=== PATIENT | female | born 1980 | race American Indian/Alaskan Native ===

== ENCOUNTER 2017-04-11 01:14 | Inpatient (IN) | payer MEDICAID ==
[~2017-04-11 01:14] MED LIST: APRESOLINE IV ONE
[2017-04-11] MEDS ORDERED: TUCKS PAD TP PRN (01:22)
[2017-04-11] MEDS ORDERED: XYLOCAINE 2% INFILTRATI ONE (01:22)
[2017-04-11] MEDS ORDERED: BRETHINE IVP PRN (01:22)
[2017-04-11] MEDS ORDERED: DULCOLAX PR PRN (01:22)
[2017-04-11] MEDS ORDERED: PHENERGAN PR PRN (01:22)
[2017-04-11] MEDS ORDERED: SUBLIMAZE IV PRN (01:22)
[2017-04-11] MEDS ORDERED: BENADRYL PO PRN (01:22)
[2017-04-11] MEDS ORDERED: LANSINOH TP PRN (01:22)
[2017-04-11] MEDS ORDERED: PHENERGAN PO PRN ×2 (01:22)
[2017-04-11] MEDS ORDERED: ZOFRAN IV PRN ×2 (01:22)
[2017-04-11] MEDS ORDERED: MILK OF MAGNESIA PO PRN (01:22)
[2017-04-11] MEDS ORDERED: STADOL IV PRN (01:22)
[2017-04-11] MEDS ORDERED: ePHEDrine SULFATE IV PRN (01:22)
[2017-04-11] MEDS ORDERED: MINERAL OIL PO PRN (01:22)
[2017-04-11] MEDS ORDERED: NARCAN 0.4 MG/1 ML IV PRN (01:22)
[2017-04-11] MEDS ORDERED: BRETHINE SUB-Q PRN (01:22)
[2017-04-11] MEDS ORDERED: TYLENOL PO PRN (01:22)
--- NOTE | 2017-04-11 01:33 | History and Physical Report ---
History of Present Illness Date of examination: 04/11/17 Date of admission: 04/11/17 01:14 Chief complaint: Delivered in EMS on way to hospital History of present illness: This is a 36 yo unknown LMP nor EDC as patient has not received any care. She stated that at 400p leaking water and then contractions started earlier in the night and called EMS and delivered via Ambulance. She denies any barreto, bv nor scotomat. She denies any medical problems and no surgeries. She has not received any care this . Past History Past Medical History: no pertinent history Past Surgical History: no surgical history Family/Genetic History: none, diabetes (mom), hypertension (grandmother) Social history: single, smoking. denies: alcohol abuse, prescription drug abuse - Obstetrical History : 9 Para: 8 Hx # Term Pregnancies: 8 Number of Pregnancies: 0 Spontaneous Abortions: 0 Induced : 0 Number of Living Children: 8 Medications and Allergies Allergies Allergy/AdvReac Type Severity Reaction Status Date / Time No Known Allergies Allergy Verified 07/23/15 08:51 Home Medications Medication Instructions Recorded Confirmed Last Taken Type HYDROcodone/APAP 5-325 [[place] 1 each PO Q6HR PRN #20 tablet 07/23/15 Unknown Rx 5/325] Labetalol [Normodyne TAB] 200 mg PO BID #60 tablet 07/23/15 Unknown Rx Ondansetron [Zofran Odt] 4 mg PO Q6H PRN #7 tab.rapdis 07/23/15 Unknown Rx - Physical Exam Breasts: Positive: normal Cardiovascular: Regular rate, Normal S1 Lungs: Positive: Clear to auscultation Abdomen: Positive: normal appearance, soft, normal bowel sounds. Negative: distention, tenderness Genitourinary (Female): Positive: normal external genitalia, normal perenium Vulva: both: normal Uterus: Positive: normal size, normal contour Extremities: Positive: normal Deep Tendon Reflex Grade: Normal +2 Results All other labs normal. Assessment and Plan A/P PPD#0 via EMS ( male) Elevated BP check PIH hydraazine for BP >160/110 PIH labs stat consider Mag routine PP orders
[2017-04-11] MEDS ORDERED: APRESOLINE IV ONE (01:40)
--- NOTE | 2017-04-11 01:44 | Procedure Note ---
OB Delivery Note - Delivery Date of Delivery: 04/11/17 Surgeon: DIANDRA LEAVITT - Vaginal Delivery position: OA Intrapartum events: no care Delivery induction: none Delivery monitor: none Route of delivery: Delivery placenta: spontaneous Delivery cord: 3 umbilical vessels Episiotomy: none Delivery laceration: none Delivery comments: I was called by nurse alerting that patient without care came into hospital delivered a viable at 1200 clear fluid. She commenced to deliver an intact placenta with 3 vessel cord. Wt of viable male 3424 with Apgars per EMS 9 and 10. Once in room patient lying in bed comfortable and inspection of perineum and cervix without lacerations. Patient denies barreto, bv, nor scotomata. BP elevated 170-180/70-80s. PIh labs stat. close observation for possible mag. s/p 2 doses of hydralazine - A at 1 minute: 9 at 5 minutes: 10 Infant Gender: Male (weight 3424g)
[2017-04-11] MEDS: PITOCin/NS 20 UNIT/1000ML DRIP 20 UNITS/1,000 ML BAG IV SCH ×2 (01:45→06:41)
[2017-04-11] MEDS ORDERED: APRESOLINE IV PRN (01:55)
[2017-04-11] MEDS ORDERED: LACTATED RINGERS 1,000 ML IV SCH (02:00)
[2017-04-11] MEDS ORDERED: SODIUM CHLORIDE FLUSH SYRINGE 10 ML IV NR (02:00)
[2017-04-11] MEDS ORDERED: PITOCin/NS 30 UNIT/500ML 30 UNITS/500 ML BAG IV SCH ×2 (02:00)
[2017-04-11 02:07] LABS: Hematocrit 34.6 % (30.3-42.9); Hemoglobin 11.4 gm/dl (10.1-14.3); Mean Corpuscular HGB Conc 33 % (30-34); Mean Corpuscular Hemoglobin 27 pg (28-32); Mean Corpuscular Volume 83 fl (79-97); Platelet Count 166 K/mm3 (140-440); Red Blood Count 4.16 M/mm3 (3.65-5.03); Red Cell Distribution Width 14.6 % (13.2-15.2); White Blood Count 10.4 K/mm3 (4.5-11.0)
[2017-04-11] MEDS ORDERED: MAGNESIUM SULFATE 4GM/100ML 4 GM/100 ML BAG IV ONE ×2 (02:22→05:00)
[2017-04-11 02:34] LABS: Alanine Aminotransferase 21 units/L (7-56)
[2017-04-11 03:01] LABS: Lactate Dehydrogenase 504 units/L (91-180); Uric Acid 5.5 mg/dL (3.5-7.6)
[2017-04-11 04:03] LABS: Bilirubin,Urine NEG (Negative); Blood,Urine MOD (Negative); Ketones,Urine 20 mg/dL (Negative); Leukocyte Esterase,Urine NEG (Negative); Nitrite,Urine NEG (Negative); Urobilinogen,Urine < 2.0 mg/dL (<2.0)
[2017-04-11 04:05] LABS: RBC,Urine > 182.0 /HPF (0.0-6.0)
[2017-04-11 05:31] LABS: Urine Drugs of Abuse Note Disclamer
[2017-04-11 05:47] LABS: HIV-1 Antigen p24 Non React (Non React); HIVR-1/2 Ab Non React (Non React)
[2017-04-11] MEDS: MOTRIN PO SCH ×4 (06:37→23:52)
[2017-04-11] MEDS: MAGNESIUM SULFATE 40GM/1000ML 40 GM/1,000 ML BAG IV SCH (06:37)
[2017-04-11] MEDS ORDERED: PITOCin/NS 20 UNIT/1000ML DRIP 20,000 MILLIUNITS/1,000 ML BAG IV ONE (06:40)
--- NOTE | 2017-04-11 08:50 | Progress Note ---
Assessment and Plan A: DOD s/p at term, no care, morbid obesity, severe preeclampsia on magnesium sulfate, drug screen positive for cocaine P: Continue Magnesium for seizure prophylaxis. Labetalol PRN. ambulatory services representative consult for positive drug screen Subjective - Subjective Date of service: 04/11/17 Principal diagnosis: s/p at term, Preeclampsia, No PNC, AMA Interval history: Pt without complaints. Denies PIH symptoms. Drug screen positive for cocaine. Patient reports: appetite normal, no voiding normally (cox in place ) [place]: doing well Objective - Vital Signs Latest vital signs: Vital Signs Temp Pulse Resp BP Pulse Ox 04/11/17 07:40 98.1 F 54 L 16 141/74 04/11/17 07:07 75 137/66 04/11/17 07:06 65 98 04/11/17 07:01 66 97 04/11/17 06:56 69 141/66 97 04/11/17 06:37 18 04/11/17 06:21 67 97 04/11/17 06:16 71 97 04/11/17 06:11 80 133/63 97 04/11/17 06:06 74 97 04/11/17 06:01 80 97 04/11/17 05:56 94 H 96 04/11/17 05:51 90 99 04/11/17 05:46 73 98 04/11/17 05:41 81 97 04/11/17 05:36 78 97 04/11/17 05:31 77 97 04/11/17 05:26 73 142/67 97 04/11/17 05:21 69 97 04/11/17 05:16 77 96 04/11/17 05:11 75 151/69 97 04/11/17 05:06 91 H 97 04/11/17 05:01 92 H 97 04/11/17 04:58 20 04/11/17 04:56 84 97 04/11/17 04:51 79 97 04/11/17 04:46 86 98 04/11/17 04:41 78 148/72 97 04/11/17 04:36 79 97 04/11/17 04:31 78 97 04/11/17 04:26 77 147/67 97 04/11/17 04:21 85 97 04/11/17 04:16 95 H 97 04/11/17 04:11 79 141/64 98 04/11/17 04:06 72 97 04/11/17 04:01 75 97 04/11/17 03:56 83 149/67 97 04/11/17 03:51 96 H 97 04/11/17 03:46 85 97 04/11/17 03:41 83 127/59 97 04/11/17 03:36 91 H 97 04/11/17 03:31 82 97 04/11/17 03:26 83 127/60 97 04/11/17 03:21 85 96 04/11/17 03:16 83 97 04/11/17 03:11 83 135/63 97 04/11/17 03:06 83 97 04/11/17 03:04 98.4 F 86 18 134/62 04/11/17 03:01 84 97 04/11/17 02:56 82 134/62 97 04/11/17 02:51 94 H 97 04/11/17 02:46 82 97 04/11/17 02:41 77 129/62 97 04/11/17 02:36 73 98 04/11/17 02:30 93 H 165/87 04/11/17 02:11 93 H 165/81 04/11/17 01:56 79 163/74 04/11/17 01:41 72 165/76 04/11/17 01:40 78 168/76 04/11/17 01:36 78 168/76 04/11/17 01:26 84 194/87 04/11/17 01:14 20 Intake and Output 04/10/17 04/11/17 04/11/17 22:59 06:59 14:59 Other: Weight 117.934 kg - Exam Breasts: Present: deferred Cardiovascular: Present: Regular rate Lungs: Present: Clear to auscultation Abdomen: Present: soft (obese ) Uterus: Present: fundal height at umbilicus Extremities: Present: edema (trace). Absent: tenderness - Labs Labs: Abnormal lab results 04/11/17 04/11/17 04/11/17 Range/Units 01:45 01:45 03:05 MCH 27 L (28-32) pg Creatinine 0.5 L (0.7-1.2) mg/dL Lactate Dehydrogenase 504 H (91-180) units/L Urine WBC (Auto) 161.0 H (0.0-6.0) /HPF
[2017-04-11] MEDS: NORMODYNE PO SCH ×2 (10:28→21:55)
[2017-04-11 12:30] LABS: Hematocrit 34.6 % (30.3-42.9); Hemoglobin 11.6 gm/dl (10.1-14.3)
[2017-04-12] MEDS: MAGNESIUM SULFATE 40GM/1000ML 40 GM/1,000 ML BAG IV SCH (02:23)
[2017-04-12] MEDS: MOTRIN PO SCH ×4 (05:56→23:52)
[2017-04-12] MEDS ORDERED: BOOSTRIX IM ONE (06:00)
--- NOTE | 2017-04-12 08:38 | Progress Note ---
Assessment and Plan - Patient Problems (1) Hypertension Current Visit: Yes Status: Acute Qualifiers: Hypertension type: H Plan to address problem: will increase labetalol dose to 200mg bid will need social work consult for +UDS (2) No care in current Current Visit: No Status: Acute Qualifiers: Trimester: T Subjective - Subjective Date of service: 04/12/17 Principal diagnosis: s/p at term, Preeclampsia, No PNC, AMA Interval history: Patient with mildly elevated blood pressures on labetalol 100mg. Patient is without complaints. UDS +cocaine. Will continue to monitor blood pressures. Patient reports: appetite normal, voiding normally, pain well controlled [place]: doing well Objective - Vital Signs Latest vital signs: Vital Signs Temp Pulse Resp BP 04/12/17 08:00 98.1 F 65 18 145/79 04/12/17 04:30 98.2 F 76 18 141/72 04/12/17 02:05 97.6 F 73 18 125/66 04/12/17 00:05 98.1 F 72 20 122/64 04/11/17 21:55 73 135/65 04/11/17 21:40 98.1 F 73 18 135/69 04/11/17 18:33 78 18 117/55 04/11/17 18:24 18 04/11/17 16:10 97.6 F 75 20 119/72 04/11/17 13:58 84 18 122/66 04/11/17 12:25 18 04/11/17 12:08 98.3 F 82 18 131/69 04/11/17 10:28 73 141/65 04/11/17 10:08 98.3 F 73 20 141/65 Intake and Output 04/11/17 04/12/17 04/12/17 22:59 06:59 14:59 Intake Total 735 970 Output Total 1450 1600 Balance -316 -706 Intake: IV 375 250 Lactated Ringers 1,000 ml 225 150 @ 125 mls/hr IV DIRECT ROSELIA Rx#:[id number] MAGNESIUM SULFATE 40GM/ 150 100 1000ML 40 gm In 1,000 ml @ 2 GM/HR 50 mls/hr IV DIRECT ROSELIA Rx#:[id number] Oral 360 360 Intake, Free Water 360 Output: Urine 1450 1600 Indwelling Catheter 1450 1600 Other: Total, Intake Amount 360 360 Total, Output Amount 500 1000 Voiding Method Indwelling Catheter # Bowel Movements 1 - Exam Uterus: Present: normal, firm - Labs Labs: Abnormal lab results 04/11/17 04/11/17 04/11/17 Range/Units 08:56 12:03 15:45 Magnesium 3.70 H 4.20 H 4.70 H (1.7-2.3) mg/dL 04/11/17 04/12/17 04/12/17 Range/Units 19:55 00:26 03:12 Magnesium 4.60 H 4.80 H 5.20 H (1.7-2.3) mg/dL
[2017-04-12] MEDS: NORMODYNE PO SCH ×2 (10:04→21:58)
[2017-04-13] MEDS: MOTRIN PO SCH ×4 (05:51→23:58)
--- NOTE | 2017-04-13 08:31 | Progress Note ---
Assessment and Plan A/P PPD#3 s/p , HTN, + UDS for cocaine BP 140-150/80s on labetolol increased yesterday from 100 to 200 mg bid will add procardia 30 mg qd Continue to watch BP closely s/p social service consult continue present mgt. Subjective - Subjective Principal diagnosis: s/p at term, Preeclampsia, No PNC, AMA Interval history: This is a 36 yo unknown LMP nor EDC as patient has not received any care. She stated that at 400p leaking water and then contractions started earlier in the night and called EMS and delivered via Ambulance. She denies any barreto, bv nor scotomat. She denies any medical problems and no surgeries. She has not received any care this . Patient reports: appetite normal, voiding normally, pain well controlled, flatus , ambulating normally : doing well Objective - Vital Signs Latest vital signs: Vital Signs Temp Pulse Resp BP 04/13/17 05:11 98.1 F 52 L 18 144/68 04/13/17 00:00 98.9 F 57 L 18 138/53 04/12/17 21:58 57 L 147/59 04/12/17 20:20 98.5 F 57 L 20 147/59 04/12/17 16:25 98.2 F 60 18 150/77 04/12/17 14:00 98.2 F 70 18 154/86 04/12/17 12:10 98.1 F 70 18 153/83 04/12/17 12:03 98.1 F 70 18 153/84 04/12/17 10:05 78 18 148/72 04/12/17 10:04 78 148/72 04/12/17 10:00 98.0 F 70 18 156/75 Intake and Output 04/12/17 04/13/17 04/13/17 22:59 06:59 14:59 Intake Total 580 360 Output Total 400 Balance 180 360 Intake: Oral 580 Intake, Free Water 360 Output: Urine 400 Void 400 Other: Total, Intake Amount 240 Total, Output Amount 400 Voiding Method Toilet # Voids Void 1 2 - Exam Breasts: Present: normal Cardiovascular: Present: Regular rate, Normal S1 Lungs: Present: Clear to auscultation, Normal air movement Abdomen: Present: normal appearance, soft, normal bowel sounds. Absent: distention, tenderness Uterus: Present: normal, firm, fundal height below umbilicus. Absent: bogginess , tenderness Extremities: Present: normal Deep Tendon Reflex Grade: Normal +2
[2017-04-13] MEDS: NORMODYNE PO SCH ×2 (10:20→21:49)
[2017-04-13] MEDS: PROCARDIA XL PO SCH (10:20)
[2017-04-14] MEDS: MOTRIN PO SCH (05:39)
--- NOTE | 2017-04-14 07:47 | Progress Note ---
Assessment and Plan BP 130/140-70-80 A: Stable PP Day #3 CTHN-Controlled P: D/c home Rx meds RTO one week BP check Call office to schedule circumcision Subjective - Subjective Date of service: 04/14/17 Principal diagnosis: s/p at term, Preeclampsia, No PNC, AMA Patient reports: appetite normal, voiding normally, pain well controlled, flatus , ambulating normally : doing well Objective - Vital Signs Latest vital signs: Vital Signs Temp Pulse Resp BP 04/14/17 01:20 98.5 F 76 18 134/55 04/13/17 21:49 84 144/85 04/13/17 20:35 98.6 F 66 18 147/61 04/13/17 16:35 98.6 F 76 20 140/74 04/13/17 14:05 97.5 F L 76 20 120/80 Intake and Output 04/13/17 04/14/17 04/14/17 22:59 06:59 14:59 Intake Total 480 480 Balance 480 480 Intake: Oral 240 Intake, Free Water 240 480 Other: Total, Intake Amount 240 # Voids Void 1 2 - Exam Breasts: Present: deferred Lungs: Present: Normal air movement Abdomen: Present: normal appearance, soft. Absent: distention, tenderness Uterus: Present: normal, firm
--- NOTE | 2017-04-14 07:56 | Discharge Summary ---
Providers - Providers Date of Admission: 04/11/17 01:14 Date of discharge: 04/14/17 Attending physician: DIANDRA LEAVITT MD 04/11/17 08:47 Consult to Case Management [CONS] Routine Services Needed at Discharge: Other Notified:: Breann Phone number called:: [phone] Was contact made?: Yes If yes, spoke with:: Breann Time called:: 08:49 Additional Physician Instructions: Pt's urine positive for cocaine. Primary care physician: [facility] Hospitalization Reason for admission: active labor, IUP at term Delivery: Episiotomy: none Laceration: none Other procedures: none Discharge diagnosis: IUP at term delivered [place] baby: male Condition at discharge: Good Disposition: DC-01 TO HOME OR SELFCARE Plan - Discharge Medications Prescriptions: hydrALAZINE [Apresoline INJ] 5 mg IV Q30MIN #3 vial HYDROcodone/APAP 5-325 [[place] 5/325] 1 each PO Q6HR PRN #30 tablet PRN Reason: Pain Ibuprofen [Motrin] 600 mg PO Q8H PRN #30 tablet PRN Reason: Pain Ibuprofen [Motrin] 600 mg PO Q8H PRN #30 tablet PRN Reason: Pain Labetalol [Normodyne TAB] 200 mg PO BID #30 tablet NIFEdipine XL [Procardia Xl] 30 mg PO QDAY #30 tablet oxyCODONE /ACETAMINOPHEN [Percocet 5/325] 1 tab PO Q6HR PRN #30 tablet PRN Reason: Pain - Provider Discharge Summary Activity: routine, no sex for 6 weeks, no heavy lifting 4 weeks, no strenuous exercise Diet: routine Additional instructions: [] Smoking cessation referral if applicable(refer to patient education folder for contact #) [] Refer to [facility] Booklet Call your doctor immediately for: * Fever > 100.5 * Heavy vaginal bleeding ( >1 pad per hour) * Severe persistent headache * Shortness of breath * Reddened, hot, painful area to leg or breast * Drainage or odor from incision. * Keep incision clean and dry at all times and follow doctor's instructions regarding bathing/showering - Follow up plan Follow up: PRIMARY CARE, [Primary Care Provider] - REGINA DASILVA MD [Staff Physician] - 7 Days
[2017-04-14] MEDS: PROCARDIA XL PO SCH (10:02)
[2017-04-14] MEDS: NORMODYNE PO SCH (10:08)
[2017-04-14 14:01] VITALS: BP 154/77
== END 2017-04-14 14:30 | disposition home or self-care (01) | DRG 774 ==
LOC: LD 01:14 → OB 06:23
PROVIDERS: ADMIT Obstetrics & Gynecology; ATTEND Obstetrics & Gynecology
PROC: 10E0XZZ Delivery of Products of Conception, External Approach (ICD-10-PCS; principal; 2017-04-11)
DX: O11.4 Pre-existing hypertension with pre-eclampsia, complicating childbirth (principal); O99.214 Obesity complicating childbirth; O99.334 Smoking (tobacco) complicating childbirth; F17.200 Nicotine dependence, unspecified, uncomplicated; E66.01 Morbid (severe) obesity due to excess calories; O99.324 Drug use complicating childbirth; F14.10 Cocaine abuse, uncomplicated; O09.33 Supervision of pregnancy with insufficient antenatal care, third trimester; Z37.0 Single live birth; Z82.49 Family history of ischemic heart disease and other diseases of the circulatory system; Z83.3 Family history of diabetes mellitus; Z3A.37 37 weeks gestation of pregnancy
CPT/HCPCS: 36415; 80307; 81001; 82565; 83615; 83735; 84450; 84460; 84550; 85014; 85018; 85027; 85660; 86592; 86706; 86762; 86803; 86850; 86900; 86901; 87806; 88307; 90471; 90715; J0360; J0595; J2590; J3475; J7120

== ENCOUNTER 2018-02-22 10:50 | Emergency (ER) | payer MEDICAID ==
[2018-02-22] MEDS ORDERED: NACL 0.9% 1000 ML 1,000 ML IV ONE (11:19)
[2018-02-22] MEDS ORDERED: TORADOL IV ONE (11:19)
[2018-02-22] MEDS ORDERED: ZOFRAN IV ONE (11:19)
[2018-02-22] MEDS ORDERED: DILAUDID IV ONE (11:19)
[2018-02-22 11:35] LABS: Basophils % (Auto) 0.5 % (0.0-1.8); Eosinophils # (Auto) 0.1 K/mm3 (0.0-0.4); Eosinophils % (Auto) 1.7 % (0.0-4.3); Hematocrit 41.4 % (30.3-42.9); Lymphocytes # (Auto) 2.5 K/mm3 (1.2-5.4); Lymphocytes % (Auto) 41.2 % (13.4-35.0); Mean Corpuscular HGB Conc 34 % (30-34); Mean Corpuscular Hemoglobin 30 pg (28-32); Mean Corpuscular Volume 87 fl (79-97); Monocytes # (Auto) 0.3 K/mm3 (0.0-0.8); Monocytes % (Auto) 5.7 % (0.0-7.3); Platelet Count 218 K/mm3 (140-440); Red Blood Count 4.74 M/mm3 (3.65-5.03); Red Cell Distribution Width 13.8 % (13.2-15.2)
[2018-02-22] MEDS ORDERED: ZOFRAN ONE (11:38)
[2018-02-22] MEDS ORDERED: DILAUDID ONE (11:38)
[2018-02-22] MEDS ORDERED: TORADOL ONE (11:38)
[2018-02-22] MEDS ORDERED: NACL 0.9% 1000 ML 1,000 ML ONE (11:38)
[2018-02-22 12:08] LABS: Alanine Aminotransferase 15 units/L (7-56); Albumin 4.2 g/dL (3.9-5); BUN/Creatinine Ratio 16; Bilirubin,Direct < 0.2 mg/dL (0-0.2); Blood Urea Nitrogen 13 mg/dL (7-17); Calcium 9.2 mg/dL (8.4-10.2); Hemolysis Index 6; Lipase 29 units/L (13-60)
[2018-02-22 12:24] VITALS: BP 140/80
--- NOTE | 2018-02-22 12:49 | Ultrasound Report ---
ULTRASOUND ABDOMEN COMPLETE: TECHNIQUE: Transabdominal ultrasound with color Doppler interrogation. HISTORY: Right upper quadrant pain. COMPARISON: none. FINDINGS: LIVER: Normal. BILIARY SYSTEM: There are multiple shadowing gallstones within the gallbladder measuring up to 1.3 cm. No evidence for abnormal gallbladder distention, wall thickening or surrounding fluid. The CBD measures 3 mm. PANCREAS: Normal. SPLEEN: Normal. KIDNEYS: Normal. AORTA/IVC: Normal. ASCITES: None. IMPRESSION: Cholelithiasis. No secondary findings of acute cholecystitis.
[2018-02-22] MEDS ORDERED: PERCOCET 5/325 PO ONE (13:44)
--- NOTE | 2018-02-22 14:35 | Emergency Department Report ---
ED Abdominal Pain HPI - General Chief Complaint: Abdominal Pain Stated Complaint: GOL STONES Time Seen by Provider: 02/22/18 11:03 Source: patient Mode of arrival: Wheelchair Limitations: No Limitations - History of Present Illness Initial Comments: Patient is a 37-year-old Female who is presenting with right QUADRANT pain. Patient has a history of gallstones was not seen surgery. They states pain is 10 out of 10 in severity and sharp pain. Patient's had some nausea with vomiting as well. Patient denies any fevers. Patient states her last meal was a crab legs that were different and better with panamanian fries. Severity scale (0 -10): 6 - Related Data Previous Rx's Medication Instructions Recorded Last Taken Type Ibuprofen [Motrin] 600 mg PO Q8H PRN #30 tablet 04/11/17 Unknown Rx hydrALAZINE [Apresoline INJ] 5 mg IV Q30MIN #3 vial 04/11/17 Unknown Rx oxyCODONE /ACETAMINOPHEN [Percocet 1 tab PO Q6HR PRN #30 tablet 04/11/17 Unknown Rx 5/325] HYDROcodone/APAP 5-325 [[place] 1 each PO Q6HR PRN #30 tablet 04/13/17 Unknown Rx 5/325] Ibuprofen [Motrin] 600 mg PO Q8H PRN #30 tablet 04/13/17 Unknown Rx Labetalol [Normodyne TAB] 200 mg PO BID #30 tablet 04/13/17 Unknown Rx NIFEdipine XL [Procardia Xl] 30 mg PO QDAY #30 tablet 04/13/17 Unknown Rx Dicyclomine [Bentyl] 10 mg PO QID #15 capsule 02/22/18 Unknown Rx HYDROcodone/APAP 5-325 [[place] 1 each PO Q4HR PRN #12 tablet 02/22/18 Unknown Rx 5/325] Ondansetron [Zofran Odt] 4 mg PO Q8HR PRN #10 tab.rapdis 02/22/18 Unknown Rx Allergies Allergy/AdvReac Type Severity Reaction Status Date / Time No Known Allergies Allergy Verified 07/23/15 08:51 ED Review of Systems ROS: Stated complaint: GOL STONES Other details as noted in HPI Comment: All other systems reviewed and negative ED Past Medical Hx - Past Medical History Hx Hypertension: No Hx Congestive Heart Failure: No Hx Diabetes: No Hx Deep Vein Thrombosis: No Hx Renal Disease: No Hx Sickle Cell Disease: No Hx Seizures: No Hx Asthma: No Hx COPD: No Hx HIV: No - Social History Smoking Status: Current Every Day Smoker Substance Use Type: None - Medications Home Medications: Home Medications Medication Instructions Recorded Confirmed Last Taken Type Ibuprofen [Motrin] 600 mg PO Q8H PRN #30 tablet 04/11/17 Unknown Rx hydrALAZINE [Apresoline INJ] 5 mg IV Q30MIN #3 vial 04/11/17 Unknown Rx oxyCODONE /ACETAMINOPHEN [Percocet 1 tab PO Q6HR PRN #30 tablet 04/11/17 Unknown Rx 5/325] HYDROcodone/APAP 5-325 [[place] 1 each PO Q6HR PRN #30 tablet 04/13/17 Unknown Rx 5/325] Ibuprofen [Motrin] 600 mg PO Q8H PRN #30 tablet 04/13/17 Unknown Rx Labetalol [Normodyne TAB] 200 mg PO BID #30 tablet 04/13/17 Unknown Rx NIFEdipine XL [Procardia Xl] 30 mg PO QDAY #30 tablet 04/13/17 Unknown Rx Dicyclomine [Bentyl] 10 mg PO QID #15 capsule 02/22/18 Unknown Rx HYDROcodone/APAP 5-325 [[place] 1 each PO Q4HR PRN #12 tablet 02/22/18 Unknown Rx 5/325] Ondansetron [Zofran Odt] 4 mg PO Q8HR PRN #10 tab.rapdis 02/22/18 Unknown Rx ED Physical Exam - General Limitations: No Limitations General appearance: alert, in distress - Head Head exam: Present: atraumatic, normocephalic - Eye Eye exam: Present: normal appearance - ENT ENT exam: Present: mucous membranes moist - Neck Neck exam: Present: normal inspection - Respiratory Respiratory exam: Present: normal lung sounds bilaterally. Absent: respiratory distress, wheezes, rales - Cardiovascular Cardiovascular Exam: Present: regular rate, normal rhythm. Absent: systolic murmur, diastolic murmur, rubs, gallop - GI/Abdominal GI/Abdominal exam: Present: soft, tenderness (right upper quadrant), normal bowel sounds. Absent: distended, guarding, rebound, rigid - Extremities Exam Extremities exam: Present: normal inspection - Back Exam Back exam: Present: normal inspection - Neurological Exam Neurological exam: Present: alert, oriented X3 - Psychiatric Psychiatric exam: Present: normal affect, normal mood - Skin Skin exam: Present: warm, dry, intact, normal color. Absent: rash ED Course Vital Signs 02/22/18 02/22/18 10:56 12:19 Temperature 98.7 F Pulse Rate 107 H 63 Respiratory 18 Rate Blood Pressure 102/65 Blood Pressure 140/80 [Left] O2 Sat by Pulse 97 100 Oximetry ED Medical Decision Making - Lab Data Result diagrams: 02/22/18 11:24 02/22/18 11:24 - Radiology Data Ultrasound of the abdomen shows cholelithiasis without evidence of cholecystitis - Medical Decision Making Patient was hydrated given pain meds and antiemetics and was feeling better. Patient is urged to follow with surgery for removal of her gallbladder and was also educated on low-fat diet. Critical care attestation.: If time is entered above; I have spent that time in minutes in the direct care of this critically ill patient, excluding procedure time. ED Disposition Clinical Impression: Biliary colic Disposition: DC-01 TO HOME OR SELFCARE Is pt being admited?: No Does the pt Need Aspirin: No Condition: Stable Instructions: Biliary Colic (ED), Low Fat Diet (ED) Referrals: PRIMARY CARE, [Primary Care Provider] - 3-5 Days
== END 2018-02-22 14:56 | disposition home or self-care (01) ==
LOC: ED 10:50
DX: K80.50 Calculus of bile duct without cholangitis or cholecystitis without obstruction (principal); F17.200 Nicotine dependence, unspecified, uncomplicated
CPT/HCPCS: 36415; 76700; 80048; 80074; 83690; 85025; 96361; 96374; 96375; 99284; J1170; J1885; J2405; J7030

== ENCOUNTER 2022-03-05 09:27 | Emergency (ER) | payer SELFPAY ==
[2022-03-05] MEDS ORDERED: HYDROmorphone 1 MG/1 ML INJ IV ONE ×2 (10:19→12:47)
[2022-03-05] MEDS ORDERED: ONDANSETRON 4 MG/2 ML INJ IV ONE ×2 (10:19→12:47)
[2022-03-05] MEDS ORDERED: FAMOTIDINE 20 MG/2 ML INJ IV ONE (10:19)
[2022-03-05] MEDS ORDERED: SODIUM CHLORIDE 0.9% 1000 ML 1,000 ML IV ONE (10:19)
--- NOTE | 2022-03-05 10:33 | Emergency Department Report ---
ED Abdominal Pain HPI - General Chief Complaint: Abdominal Pain Stated Complaint: ABD PAIN Time Seen by Provider: 03/05/22 09:52 Source: patient, EMS Mode of arrival: Ambulatory Limitations: No Limitations - History of Present Illness Initial Comments: 41-year-old female with a past medical history of obesity, hypertension, and cholelithiasis presents to the hospital with right upper quadrant pain, nausea, vomiting since yesterday. Patient was diagnosed with cholelithiasis in January 2018 during ED visit here. She has not followed up with a surgeon and has not had a recurrence biliary attack until today. Pain is 9/10 intensity, constant, throbbing with associated nausea and vomiting. Pain improves after vomiting episodes. No fever reported Severity scale (0 -10): 9 - Related Data Previous Rx's Medication Instructions Recorded Last Taken Type Ibuprofen [Motrin] 600 mg PO Q8H PRN #30 tablet 04/11/17 Unknown Rx hydrALAZINE [Apresoline INJ] 5 mg IV Q30MIN #3 vial 04/11/17 Unknown Rx oxyCODONE /ACETAMINOPHEN [Percocet 1 tab PO Q6HR PRN #30 tablet 04/11/17 Unknown Rx 5/325] HYDROcodone/APAP 5-325 [[place] 1 each PO Q6HR PRN #30 tablet 04/13/17 Unknown Rx 5/325] Ibuprofen [Motrin] 600 mg PO Q8H PRN #30 tablet 04/13/17 Unknown Rx NIFEdipine XL [Procardia Xl] 30 mg PO QDAY #30 tablet 04/13/17 Unknown Rx labetaloL [Labetalol 200mg TAB] 200 mg PO BID #30 tablet 04/13/17 Unknown Rx Dicyclomine [Bentyl] 10 mg PO QID #15 capsule 02/22/18 Unknown Rx HYDROcodone/APAP 5-325 [[place] 1 each PO Q4HR PRN #12 tablet 02/22/18 Unknown Rx 5/325] Ondansetron [Zofran Odt] 4 mg PO Q8HR PRN #10 tab.rapdis 02/22/18 Unknown Rx Famotidine [Pepcid] 20 mg PO BID #30 tablet 03/05/22 Unknown Rx Ondansetron [Zofran Odt] 4 mg PO Q8HR PRN #20 tab.rapdis 03/05/22 Unknown Rx oxyCODONE /ACETAMINOPHEN [Percocet 1 tab PO Q6HR PRN #20 tablet 03/05/22 Unknown Rx 5/325] Allergies Allergy/AdvReac Type Severity Reaction Status Date / Time No Known Allergies Allergy Verified 03/05/22 09:40 ED Review of Systems ROS: Stated complaint: ABD PAIN Other details as noted in HPI Comment: All other systems reviewed and negative ED Past Medical Hx - Past Medical History Hx Hypertension: No Hx Congestive Heart Failure: No Hx Diabetes: No Hx Deep Vein Thrombosis: No Hx Renal Disease: No Hx Sickle Cell Disease: No Hx Seizures: No Hx Asthma: No Hx COPD: No Hx HIV: No - Social History Smoking Status: Current Every Day Smoker Substance Use Type: None - Medications Home Medications: Home Medications Medication Instructions Recorded Confirmed Last Taken Type Ibuprofen [Motrin] 600 mg PO Q8H PRN #30 tablet 04/11/17 Unknown Rx hydrALAZINE [Apresoline INJ] 5 mg IV Q30MIN #3 vial 04/11/17 Unknown Rx oxyCODONE /ACETAMINOPHEN [Percocet 1 tab PO Q6HR PRN #30 tablet 04/11/17 Unknown Rx 5/325] HYDROcodone/APAP 5-325 [[place] 1 each PO Q6HR PRN #30 tablet 04/13/17 Unknown Rx 5/325] Ibuprofen [Motrin] 600 mg PO Q8H PRN #30 tablet 04/13/17 Unknown Rx NIFEdipine XL [Procardia Xl] 30 mg PO QDAY #30 tablet 04/13/17 Unknown Rx labetaloL [Labetalol 200mg TAB] 200 mg PO BID #30 tablet 04/13/17 Unknown Rx Dicyclomine [Bentyl] 10 mg PO QID #15 capsule 02/22/18 Unknown Rx HYDROcodone/APAP 5-325 [[place] 1 each PO Q4HR PRN #12 tablet 02/22/18 Unknown Rx 5/325] Ondansetron [Zofran Odt] 4 mg PO Q8HR PRN #10 tab.rapdis 02/22/18 Unknown Rx Famotidine [Pepcid] 20 mg PO BID #30 tablet 03/05/22 Unknown Rx Ondansetron [Zofran Odt] 4 mg PO Q8HR PRN #20 tab.rapdis 03/05/22 Unknown Rx oxyCODONE /ACETAMINOPHEN [Percocet 1 tab PO Q6HR PRN #20 tablet 03/05/22 Unknown Rx 5/325] ED Physical Exam - General Limitations: No Limitations - Other Other exam information: General: Moderate distress secondary to pain Head: Atraumatic Eyes: normal appearance ENT: Moist mucous membranes Neck: Normal appearance, no midline tenderness Chest: Clear to auscultation bilaterally CV: Mild tachycardia regular rhythm Abdomen: Soft, normal bowel sounds, right upper quadrant tenderness, no rebound or guarding Back: Normal inspection Extremity: Normal inspection, full range of motion Neuro: Alert O x 3, no facial asymmetry, speech clear, no gross motor sensory deficit Psych: Appropriate behavior Skin: No rash ED Course Vital Signs 03/05/22 09:37 Temperature 97.8 F Pulse Rate 105 H Respiratory 16 Rate Blood Pressure 144/79 [Left] O2 Sat by Pulse 100 Oximetry ED Medical Decision Making - Lab Data Result diagrams: 03/05/22 10:25 03/05/22 10:25 Lab Results 03/05/22 03/05/22 03/05/22 Range/Units 10:25 10:25 10:25 WBC 10.0 (4.5-11.0) K/mm3 RBC 4.83 (3.65-5.03) M/mm3 Hgb 13.6 (10.1-14.3) gm/dl Hct 41.8 (30.3-42.9) % MCV 87 (79-97) fl MCH 28 (28-32) pg MCHC 33 (30-34) % RDW 15.0 (13.2-15.2) % Plt Count 239 (140-440) K/mm3 Lymph % (Auto) 19.0 (13.4-35.0) % Real % (Auto) 4.3 (0.0-7.3) % Eos % (Auto) 0.2 (0.0-4.3) % Baso % (Auto) 0.4 (0.0-1.8) % Lymph # (Auto) 1.9 (1.2-5.4) K/mm3 Real # (Auto) 0.4 (0.0-0.8) K/mm3 Eos # (Auto) 0.0 (0.0-0.4) K/mm3 Baso # (Auto) 0.0 (0.0-0.1) K/mm3 Seg Neutrophils % 76.1 H (40.0-70.0) % Seg Neutrophils # 7.6 (1.8-7.7) K/mm3 Sodium 141 (137-145) mmol/L Potassium 3.0 L (3.6-5.0) mmol/L Chloride 104.1 (98-107) mmol/L Carbon Dioxide 21 L (22-30) mmol/L Anion Gap 19 mmol/L BUN 9 (7-17) mg/dL Creatinine 0.7 (0.6-1.2) mg/dL Estimated GFR > 60 ml/min BUN/Creatinine Ratio 13 % Glucose 153 H (65-100) mg/dL Calcium 8.8 (8.4-10.2) mg/dL Total Bilirubin 0.20 (0.1-1.2) mg/dL AST 20 (5-40) units/L ALT 20 (7-56) units/L Alkaline Phosphatase 65 (35-129) units/L Total Protein 7.2 (6.3-8.2) g/dL Albumin 4.3 (3.9-5) g/dL Albumin/Globulin Ratio 1.5 % Lipase 20 (13-60) units/L HCG, Qual Negative (Negative) - Radiology Data Radiology results: report reviewed ULTRASOUND ABDOMEN, LIMITED (RIGHT UPPER QUADRANT) INDICATION / CLINICAL INFORMATION: Right upper quadrant pain and vomiting; hx of gallstones. COMPARISON: 02/22/18. FINDINGS: PANCREAS: No significant abnormality. LIVER: 18 cm in length with moderate diffuse increased echogenicity compared to the right renal cortex and no focal lesion. Normal hepatopedal blood flow in the main portal vein. GALLBLADDER: Multiple gallstones. Moderate diffuse thickening of the gallbladder wall without significant gallbladder dilatation. Negative sonographic Verdin sign. BILE DUCTS: No significant abnormality. Common bile duct measures 5 mm. FREE FLUID: None. ADDITIONAL FINDINGS: Images of the right kidney are normal. IMPRESSION: 1. Cholelithiasis. Moderate diffuse thickening of the wall of the gallbladder may be related to acute or chronic cholecystitis. There is a negative sonographic Verdin sign. Hepatobiliary scintigraphy may be helpful in excluding acute cholecystitis. 2. Mild hepatomegaly with moderate diffuse hepatocellular disease, most commonly related to fatty infiltration. - Medical Decision Making 41-year-old female presents to the hospital with right upper quadrant pain, nausea, vomiting, and gallstones. Although ultrasound shows stones plus thickened gallbladder wall patient does not have pericholecystic fluid, positive Verdin signs, has normal white count without fever, and normal LFTs. Clinical picture suggestive of biliary colic as opposed to cholecystitis. Patient symptoms improved with ED treatment. Tolerating p.o. intake. P.o. potassium provided. Will be discharged with PMD and GI follow-up. Patient also endorses intermittent blood-tinged stool without signs of anemia. Outpatient GI follow- up will also be encouraged Critical Care Time: No Critical care attestation.: If time is entered above; I have spent that time in minutes in the direct care of this critically ill patient, excluding procedure time. ED Disposition Clinical Impression: Biliary colic, Gallstones, Blood in stool Disposition: HOME / SELF CARE / HOMELESS Is pt being admited?: No Condition: Stable Instructions: Abdominal Pain (ED), Cholelithiasis, [id number], Biliary Colic, Adult, Rectal Bleeding, [id number] Additional Instructions: Take the medication as prescribed. Follow-up with your doctor or doctor/clinic provided. Return if symptoms worsen as indicated by your discharge instructions. Percocet may cause constipation. Take [id number] stool softeners as needed to prevent and treat constipation. Prescriptions: Famotidine [Pepcid] 20 mg PO BID #30 tablet oxyCODONE /ACETAMINOPHEN [Percocet 5/325] 1 tab PO Q6HR PRN #20 tablet PRN Reason: Pain Ondansetron [Zofran Odt] 4 mg PO Q8HR PRN #20 tab.rapdis PRN Reason: Nausea And Vomiting Referrals: MAJOR PENG MD [Staff Physician] - 3-5 Days (GI doctor) CLARIBEL CHRISTENSEN MD [Staff Physician] - 3-5 Days (General surgeon) [facility] [Provider Group] - 3-5 Days (Primary care clinic) Time of Disposition: 14:32
--- NOTE | 2022-03-05 11:21 | Ultrasound Report ---
ULTRASOUND ABDOMEN, LIMITED (RIGHT UPPER QUADRANT) INDICATION / CLINICAL INFORMATION: Right upper quadrant pain and vomiting; hx of gallstones. COMPARISON: 02/22/18. FINDINGS: PANCREAS: No significant abnormality. LIVER: 18 cm in length with moderate diffuse increased echogenicity compared to the right renal jovita x and no focal lesion. Normal hepatopedal blood flow in the main portal vein. GALLBLADDER: Multiple gallstones. Moderate diffuse thickening of the gallbladder wall without signifi cant gallbladder dilatation. Negative sonographic Verdin sign. BILE DUCTS: No significant abnormality. Common bile duct measures 5 mm. FREE FLUID: None. ADDITIONAL FINDINGS: Images of the right kidney are normal. IMPRESSION: 1. Cholelithiasis. Moderate diffuse thickening of the wall of the gallbladder may be related to acute or chronic cholecystitis. There is a negative sonographic Verdin sign. Hepatobiliary scintigraphy ma y be helpful in excluding acute cholecystitis. 2. Mild hepatomegaly with moderate diffuse hepatocellular disease, most commonly related to fatty inf iltration. Signer Name: Jose Mckeon MD Signed: 03/05/2022 11:16 AM Workstation Name: [id number]
[2022-03-05 11:25] LABS: Basophils % (Auto) 0.4 % (0.0-1.8); Eosinophils % (Auto) 0.2 % (0.0-4.3); Hematocrit 41.8 % (30.3-42.9); Hemoglobin 13.6 gm/dl (10.1-14.3); Lymphocytes # (Auto) 1.9 K/mm3 (1.2-5.4); Mean Corpuscular HGB Conc 33 % (30-34); Mean Corpuscular Volume 87 fl (79-97); Monocytes # (Auto) 0.4 K/mm3 (0.0-0.8); Monocytes % (Auto) 4.3 % (0.0-7.3); Platelet Count 239 K/mm3 (140-440); Red Blood Count 4.83 M/mm3 (3.65-5.03)
[2022-03-05 11:30] LABS: Alanine Aminotransferase 20 units/L (7-56); Albumin 4.3 g/dL (3.9-5); Blood Urea Nitrogen 9 mg/dL (7-17); Calcium 8.8 mg/dL (8.4-10.2); Hemolysis Index 34
[2022-03-05 11:51] LABS: BUN/Creatinine Ratio 13
[2022-03-05] MEDS ORDERED: POTASSIUM CHLORIDE ER 20 MEQ TAB PO ONE (12:25)
[2022-03-05 14:45] VITALS: BP 147/74
== END 2022-03-05 15:01 | disposition home or self-care (01) ==
LOC: ED 09:27
DX: K80.50 Calculus of bile duct without cholangitis or cholecystitis without obstruction (principal); K80.80 Other cholelithiasis without obstruction; K92.1 Melena; F17.200 Nicotine dependence, unspecified, uncomplicated
CPT/HCPCS: 36415; 76705; 80053; 83690; 84703; 85025; 96361; 96374; 96375; 96376; 99284; J1170; J2405; J3490; J7030